=== PATIENT | female | born 1985 | race Caucasian/White ===

== ENCOUNTER 2017-04-09 09:08 | Emergency (ER) | payer BC ==
[~2017-04-09] VITALS: Wt 109.0 kg
[2017-04-09] MEDS ORDERED: ACETAMINOPHEN 325 MG TAB PO ONE (11:00)
[2017-04-09] MEDS ORDERED: FIORICET PO (11:13)
[2017-04-09] MEDS ORDERED: NITR-58 PO (11:13)
--- NOTE | 2017-04-09 11:20 | ERD ---
ER Documentation Chief Complaint Chief Complaint HEADACHE WITH LEFT ARM PAIN X 1 MONTH HPI Patient is a 31-year-old female who presents to the ED with headache and left arm pain. Patient has a history of migraines. She states that her headache is similar to what she has experienced in the past. She states that the pain comes and goes and she usually takes Excedrin at home. Patient states that this headache is not the worst headache of her life. Patient states that the pain came on slowly and waxes and wanes. She states that the pain is localized to her frontal head and radiates all the way to the back of her neck. She states that the pain in her left arm started this morning. She denies chest pain or shortness of breath or difficulty breathing. Denies heart conditions. States that the pain comes from the left side of her neck and all down to her left arm. Denies weakness or syncopal episode. Denies dizziness. Denies nausea or vomiting. Denies fainting episode, seizure, blurry vision, problem with balance or problem with speech. Patient does have photophobia. ROS All systems reviewed and are negative except as per history of present illness. Medications Home Meds Active Scripts Acetamin/Butalbital/Caffeine* (Fioricet*) [id number] Tab, 1 TAB PO Q4H Y for PAIN LEVEL 1-5 for 7 Days, #10 TAB Prov:MIHAI ROBERTS PA-C 04/09/17 Nitrofurantoin Monohyd Macrocr* (Macrobid*) 100 Mg Capsr, 100 MG PO BID for 5 Days, CAP Prov:MIHAI ROBERTS PA-C 04/09/17 Allergies Allergies: Coded Allergies: No Known Allergy (Unverified , 04/09/17) PMhx/Soc Medical and Surgical Hx: pt denies Medical Hx, pt denies Surgical Hx History of Surgery: Yes (Gallbladder) Anesthesia Reaction: No Hx Neurological Disorder: Yes (Migraine) Hx Respiratory Disorders: No Hx Cardiac Disorders: No Hx Psychiatric Problems: No Hx Miscellaneous Medical Probl: No Hx Alcohol Use: No Hx Substance Use: No Hx Tobacco Use: No Smoking Status: Never smoker FmHx Family History: No coronary disease, No diabetes, No other Physical Exam Vitals Vital Signs Date Time Temp Pulse Resp B/P Pulse Ox O2 Delivery O2 Flow Rate FiO2 04/09/17:43 98 04/09/17 09:15 98.1 84 18 139/77 99 Physical Exam GENERAL: Well-developed, well-nourished female. Appears in no acute distress. HEAD: Normocephalic, atraumatic. EYES: Pupils are equally reactive bilaterally. EOMs grossly intact. No conjunctival erythema. ENT: Moist mucous membranes. No uvula deviation. No kissing tonsils. No exudates. NECK: Supple. No lymphadenopathy or thyromegaly. No meningismus. negative kernig. negative brudinski. + spurlin maneuver on the left. LUNG: Clear to auscultation bilaterally. No rhonchi, wheezing, rales or coarse breath sounds. HEART: Regular rate and rhythm. No murmurs, rubs or gallops. Extremities: Equal pulses bilaterally. No peripheral clubbing, cyanosis or edema. No unilateral leg swelling. NEUROLOGIC: Alert and oriented. Moving all four extremities. 5/5 strength in all extremities. Normal speech. Steady gait. Annual nerves II through XII intact. Negative Romberg test. No ataxia. normal muscle strength and tone, normal gait. no pronator drift. SKIN: Normal color. Warm and dry. No rashes or lesions. Capillary refill < 2 seconds Results 24 hrs Laboratory Tests Test 04/09/17 10:52 Bedside Urine pH (LAB) 6.0 Bedside Urine Protein (LAB) Negative Bedside Urine Glucose (UA) Negative Bedside Urine Ketones (LAB) Negative Bedside Urine Blood Trace-lysed Bedside Urine Nitrite (LAB) Negative Bedside Urine Leukocyte Esterase (L 1+ Current Medications Medications (Trade) Dose Ordered Sig/Femi Route PRN Reason Start Time Stop Time Status Last Admin Dose Admin Acetaminophen (Tylenol Tab) 650 mg ONCE ONCE PO 04/09/17 11:00 04/09/17 11:01 DC 04/09/17 10:51 Procedures/MDM ER COURSE: I kept the patient and/or family informed of laboratory and diagnostic imaging results throughout the emergency room course. MEDICAL DECISION MAKING: This is a 31-year-old female who presents with headache x1 month on and off and left arm pain. Vital signs were reviewed. Patient is afebrile. Patient is not hypoxic. Patient is not toxic or ill-appearing. Patient likely has headache with radiculopathy. Patient's cranial nerve exam was within normal limits. Patient's urine showed 1+ leuks, likely cystitis. Patient does not have fever or chills or back pain low suspicion for pyelonephritis. Negative test. Patient was given Tylenol, tolerated well with no adverse reaction. Risks versus benefits of the CT scan were discussed with patient. At this time risks outweight benefits. She does not want a CT scan today. Patient is looking for prescription medication and a note for work. Patient does have follow-up with her primary care provider. EKG was done. EKG performed, read by Dr Osborn 89bpm, normal sinus rhythm, normal axis, no acute ST segment changes, no T wave inversion, no STEMI. low suspicion for intracranial hemorrhage, meningitis, intracranial mass, concussion, temporal arteritis, stroke, elevated intracranial pressure, seizure. Low suspicion for ACS, PE, AAA , dissection, DVT. DISCHARGE: At this time, patient is stable for discharge and outpatient management with no new complaints during the ER course. Patient was sent home with Lauryn, note for work, Macrobid and to follow-up with primary care provider and neurologist for her chronic migraines. Patient will be discharged home with instructions to recheck for new or worsening symptoms such as fever, nausea, weakness, LOC and to follow up with primary care in the next 1-2 days. Patient was advised to return to the ER for any new or worsening symptoms. Plan was discussed and patient and/or family understands and agrees. Home instructions were given. Departure Diagnosis: Primary Impression: Headache Headache type: unspecified Headache chronicity pattern: unspecified pattern Intractability: not intractable Qualified Code: R51 - Nonintractable headache, unspecified chronicity pattern, unspecified headache type Additional Impression: Cystitis Condition: Stable Patient Instructions: Self-Care for Headaches, Cystitis Referrals: COMMUNITY CLINICS YOU HAVE RECEIVED A MEDICAL SCREENING EXAM AND THE RESULTS INDICATE THAT YOU DO NOT HAVE A CONDITION THAT REQUIRES URGENT TREATMENT IN THE EMERGENCY DEPARTMENT. FURTHER EVALUATION AND TREATMENT OF YOUR CONDITION CAN WAIT UNTIL YOU ARE SEEN IN YOUR DOCTORS OFFICE WITHIN THE NEXT 1-2 DAYS. IT IS YOUR RESPONSIBILITY TO MAKE AN APPOINTMENT FOR FOLOW-UP CARE. IF YOU HAVE A PRIMARY DOCTOR --you should call your primary doctor and schedule an appointment IF YOU DO NOT HAVE A PRIMARY DOCTOR YOU CAN CALL OUR PHYSICIAN REFERRAL HOTLINE AT IF YOU CAN NOT AFFORD TO SEE A PHYSICIAN YOU CAN CHOSE FROM THE FOLLOWING [facility] CLINICS [facility] [address] [facility] [address] [facility] [facility] [address] [facility] [address] [facility]. [facility] [address] [facility]. [facility] [address] Additional Instructions: Call your primary care doctor TOMORROW for an appointment during the next 1-2 days.See the doctor sooner or return here if your condition worsens before your appointment time. MIHAI ROBERTS PA-C Apr 09, 2017 11:20
--- NOTE | 2017-04-09 11:20 | ERD ---
ER Documentation Chief Complaint Chief Complaint HEADACHE WITH LEFT ARM PAIN X 1 MONTH HPI Patient is a 31-year-old female who presents to the ED with headache and left arm pain. Patient has a history of migraines. She states that her headache is similar to what she has experienced in the past. She states that the pain comes and goes and she usually takes Excedrin at home. Patient states that this headache is not the worst headache of her life. Patient states that the pain came on slowly and waxes and wanes. She states that the pain is localized to her frontal head and radiates all the way to the back of her neck. She states that the pain in her left arm started this morning. She denies chest pain or shortness of breath or difficulty breathing. Denies heart conditions. States that the pain comes from the left side of her neck and all down to her left arm. Denies weakness or syncopal episode. Denies dizziness. Denies nausea or vomiting. Denies fainting episode, seizure, blurry vision, problem with balance or problem with speech. Patient does have photophobia. ROS All systems reviewed and are negative except as per history of present illness. Medications Home Meds Active Scripts Acetamin/Butalbital/Caffeine* (Fioricet*) [id number] Tab, 1 TAB PO Q4H Y for PAIN LEVEL 1-5 for 7 Days, #10 TAB Prov:MIHAI ROBERTS PA-C 04/09/17 Nitrofurantoin Monohyd Macrocr* (Macrobid*) 100 Mg Capsr, 100 MG PO BID for 5 Days, CAP Prov:MIHAI ROBERTS PA-C 04/09/17 Allergies Allergies: Coded Allergies: No Known Allergy (Unverified , 04/09/17) PMhx/Soc Medical and Surgical Hx: pt denies Medical Hx, pt denies Surgical Hx History of Surgery: Yes (Gallbladder) Anesthesia Reaction: No Hx Neurological Disorder: Yes (Migraine) Hx Respiratory Disorders: No Hx Cardiac Disorders: No Hx Psychiatric Problems: No Hx Miscellaneous Medical Probl: No Hx Alcohol Use: No Hx Substance Use: No Hx Tobacco Use: No Smoking Status: Never smoker FmHx Family History: No coronary disease, No diabetes, No other Physical Exam Vitals Vital Signs Date Time Temp Pulse Resp B/P Pulse Ox O2 Delivery O2 Flow Rate FiO2 04/09/17:43 98 04/09/17 09:15 98.1 84 18 139/77 99 Physical Exam GENERAL: Well-developed, well-nourished female. Appears in no acute distress. HEAD: Normocephalic, atraumatic. EYES: Pupils are equally reactive bilaterally. EOMs grossly intact. No conjunctival erythema. ENT: Moist mucous membranes. No uvula deviation. No kissing tonsils. No exudates. NECK: Supple. No lymphadenopathy or thyromegaly. No meningismus. negative kernig. negative brudinski. + spurlin maneuver on the left. LUNG: Clear to auscultation bilaterally. No rhonchi, wheezing, rales or coarse breath sounds. HEART: Regular rate and rhythm. No murmurs, rubs or gallops. Extremities: Equal pulses bilaterally. No peripheral clubbing, cyanosis or edema. No unilateral leg swelling. NEUROLOGIC: Alert and oriented. Moving all four extremities. 5/5 strength in all extremities. Normal speech. Steady gait. Annual nerves II through XII intact. Negative Romberg test. No ataxia. normal muscle strength and tone, normal gait. no pronator drift. SKIN: Normal color. Warm and dry. No rashes or lesions. Capillary refill < 2 seconds Results 24 hrs Laboratory Tests Test 04/09/17 10:52 Bedside Urine pH (LAB) 6.0 Bedside Urine Protein (LAB) Negative Bedside Urine Glucose (UA) Negative Bedside Urine Ketones (LAB) Negative Bedside Urine Blood Trace-lysed Bedside Urine Nitrite (LAB) Negative Bedside Urine Leukocyte Esterase (L 1+ Current Medications Medications (Trade) Dose Ordered Sig/Femi Route PRN Reason Start Time Stop Time Status Last Admin Dose Admin Acetaminophen (Tylenol Tab) 650 mg ONCE ONCE PO 04/09/17 11:00 04/09/17 11:01 DC 04/09/17 10:51 Procedures/MDM ER COURSE: I kept the patient and/or family informed of laboratory and diagnostic imaging results throughout the emergency room course. MEDICAL DECISION MAKING: This is a 31-year-old female who presents with headache x1 month on and off and left arm pain. Vital signs were reviewed. Patient is afebrile. Patient is not hypoxic. Patient is not toxic or ill-appearing. Patient likely has headache with radiculopathy. Patient's cranial nerve exam was within normal limits. Patient's urine showed 1+ leuks, likely cystitis. Patient does not have fever or chills or back pain low suspicion for pyelonephritis. Negative test. Patient was given Tylenol, tolerated well with no adverse reaction. Risks versus benefits of the CT scan were discussed with patient. At this time risks outweight benefits. She does not want a CT scan today. Patient is looking for prescription medication and a note for work. Patient does have follow-up with her primary care provider. EKG was done. EKG performed, read by Dr Osborn 89bpm, normal sinus rhythm, normal axis, no acute ST segment changes, no T wave inversion, no STEMI. low suspicion for intracranial hemorrhage, meningitis, intracranial mass, concussion, temporal arteritis, stroke, elevated intracranial pressure, seizure. Low suspicion for ACS, PE, AAA , dissection, DVT. DISCHARGE: At this time, patient is stable for discharge and outpatient management with no new complaints during the ER course. Patient was sent home with Lauryn, note for work, Macrobid and to follow-up with primary care provider and neurologist for her chronic migraines. Patient will be discharged home with instructions to recheck for new or worsening symptoms such as fever, nausea, weakness, LOC and to follow up with primary care in the next 1-2 days. Patient was advised to return to the ER for any new or worsening symptoms. Plan was discussed and patient and/or family understands and agrees. Home instructions were given. Departure Diagnosis: Primary Impression: Headache Headache type: unspecified Headache chronicity pattern: unspecified pattern Intractability: not intractable Qualified Code: R51 - Nonintractable headache, unspecified chronicity pattern, unspecified headache type Additional Impression: Cystitis Condition: Stable Patient Instructions: Self-Care for Headaches, Cystitis Referrals: COMMUNITY CLINICS YOU HAVE RECEIVED A MEDICAL SCREENING EXAM AND THE RESULTS INDICATE THAT YOU DO NOT HAVE A CONDITION THAT REQUIRES URGENT TREATMENT IN THE EMERGENCY DEPARTMENT. FURTHER EVALUATION AND TREATMENT OF YOUR CONDITION CAN WAIT UNTIL YOU ARE SEEN IN YOUR DOCTORS OFFICE WITHIN THE NEXT 1-2 DAYS. IT IS YOUR RESPONSIBILITY TO MAKE AN APPOINTMENT FOR FOLOW-UP CARE. IF YOU HAVE A PRIMARY DOCTOR --you should call your primary doctor and schedule an appointment IF YOU DO NOT HAVE A PRIMARY DOCTOR YOU CAN CALL OUR PHYSICIAN REFERRAL HOTLINE AT IF YOU CAN NOT AFFORD TO SEE A PHYSICIAN YOU CAN CHOSE FROM THE FOLLOWING [facility] CLINICS [facility] [address] [facility] [address] [facility]. [facility] [address] [facility] [address] [facility]. [facility] [address] [facility]. [facility] [address] Additional Instructions: Call your primary care doctor TOMORROW for an appointment during the next 1-2 days.See the doctor sooner or return here if your condition worsens before your appointment time. MIHAI ROBERTS PA-C Apr 09, 2017 11:20
--- NOTE | 2017-04-09 11:20 | ERD ---
ER Documentation Chief Complaint Chief Complaint HEADACHE WITH LEFT ARM PAIN X 1 MONTH HPI Patient is a 31-year-old female who presents to the ED with headache and left arm pain. Patient has a history of migraines. She states that her headache is similar to what she has experienced in the past. She states that the pain comes and goes and she usually takes Excedrin at home. Patient states that this headache is not the worst headache of her life. Patient states that the pain came on slowly and waxes and wanes. She states that the pain is localized to her frontal head and radiates all the way to the back of her neck. She states that the pain in her left arm started this morning. She denies chest pain or shortness of breath or difficulty breathing. Denies heart conditions. States that the pain comes from the left side of her neck and all down to her left arm. Denies weakness or syncopal episode. Denies dizziness. Denies nausea or vomiting. Denies fainting episode, seizure, blurry vision, problem with balance or problem with speech. Patient does have photophobia. ROS All systems reviewed and are negative except as per history of present illness. Medications Home Meds Active Scripts Acetamin/Butalbital/Caffeine* (Fioricet*) [id number] Tab, 1 TAB PO Q4H Y for PAIN LEVEL 1-5 for 7 Days, #10 TAB Prov:MIHAI ROBERTS PA-C 04/09/17 Nitrofurantoin Monohyd Macrocr* (Macrobid*) 100 Mg Capsr, 100 MG PO BID for 5 Days, CAP Prov:MIHAI ROBERTS PA-C 04/09/17 Allergies Allergies: Coded Allergies: No Known Allergy (Unverified , 04/09/17) PMhx/Soc Medical and Surgical Hx: pt denies Medical Hx, pt denies Surgical Hx History of Surgery: Yes (Gallbladder) Anesthesia Reaction: No Hx Neurological Disorder: Yes (Migraine) Hx Respiratory Disorders: No Hx Cardiac Disorders: No Hx Psychiatric Problems: No Hx Miscellaneous Medical Probl: No Hx Alcohol Use: No Hx Substance Use: No Hx Tobacco Use: No Smoking Status: Never smoker FmHx Family History: No coronary disease, No diabetes, No other Physical Exam Vitals Vital Signs Date Time Temp Pulse Resp B/P Pulse Ox O2 Delivery O2 Flow Rate FiO2 04/09/17:43 98 04/09/17 09:15 98.1 84 18 139/77 99 Physical Exam GENERAL: Well-developed, well-nourished female. Appears in no acute distress. HEAD: Normocephalic, atraumatic. EYES: Pupils are equally reactive bilaterally. EOMs grossly intact. No conjunctival erythema. ENT: Moist mucous membranes. No uvula deviation. No kissing tonsils. No exudates. NECK: Supple. No lymphadenopathy or thyromegaly. No meningismus. negative kernig. negative brudinski. + spurlin maneuver on the left. LUNG: Clear to auscultation bilaterally. No rhonchi, wheezing, rales or coarse breath sounds. HEART: Regular rate and rhythm. No murmurs, rubs or gallops. Extremities: Equal pulses bilaterally. No peripheral clubbing, cyanosis or edema. No unilateral leg swelling. NEUROLOGIC: Alert and oriented. Moving all four extremities. 5/5 strength in all extremities. Normal speech. Steady gait. Annual nerves II through XII intact. Negative Romberg test. No ataxia. normal muscle strength and tone, normal gait. no pronator drift. SKIN: Normal color. Warm and dry. No rashes or lesions. Capillary refill < 2 seconds Results 24 hrs Laboratory Tests Test 04/09/17 10:52 Bedside Urine pH (LAB) 6.0 Bedside Urine Protein (LAB) Negative Bedside Urine Glucose (UA) Negative Bedside Urine Ketones (LAB) Negative Bedside Urine Blood Trace-lysed Bedside Urine Nitrite (LAB) Negative Bedside Urine Leukocyte Esterase (L 1+ Current Medications Medications (Trade) Dose Ordered Sig/Femi Route PRN Reason Start Time Stop Time Status Last Admin Dose Admin Acetaminophen (Tylenol Tab) 650 mg ONCE ONCE PO 04/09/17 11:00 04/09/17 11:01 DC 04/09/17 10:51 Procedures/MDM ER COURSE: I kept the patient and/or family informed of laboratory and diagnostic imaging results throughout the emergency room course. MEDICAL DECISION MAKING: This is a 31-year-old female who presents with headache x1 month on and off and left arm pain. Vital signs were reviewed. Patient is afebrile. Patient is not hypoxic. Patient is not toxic or ill-appearing. Patient likely has headache with radiculopathy. Patient's cranial nerve exam was within normal limits. Patient's urine showed 1+ leuks, likely cystitis. Patient does not have fever or chills or back pain low suspicion for pyelonephritis. Negative test. Patient was given Tylenol, tolerated well with no adverse reaction. Risks versus benefits of the CT scan were discussed with patient. At this time risks outweight benefits. She does not want a CT scan today. Patient is looking for prescription medication and a note for work. Patient does have follow-up with her primary care provider. EKG was done. EKG performed, read by Dr Osborn 89bpm, normal sinus rhythm, normal axis, no acute ST segment changes, no T wave inversion, no STEMI. low suspicion for intracranial hemorrhage, meningitis, intracranial mass, concussion, temporal arteritis, stroke, elevated intracranial pressure, seizure. Low suspicion for ACS, PE, AAA , dissection, DVT. DISCHARGE: At this time, patient is stable for discharge and outpatient management with no new complaints during the ER course. Patient was sent home with Lauryn, note for work, Macrobid and to follow-up with primary care provider and neurologist for her chronic migraines. Patient will be discharged home with instructions to recheck for new or worsening symptoms such as fever, nausea, weakness, LOC and to follow up with primary care in the next 1-2 days. Patient was advised to return to the ER for any new or worsening symptoms. Plan was discussed and patient and/or family understands and agrees. Home instructions were given. Departure Diagnosis: Primary Impression: Headache Headache type: unspecified Headache chronicity pattern: unspecified pattern Intractability: not intractable Qualified Code: R51 - Nonintractable headache, unspecified chronicity pattern, unspecified headache type Additional Impression: Cystitis Condition: Stable Patient Instructions: Self-Care for Headaches, Cystitis Referrals: COMMUNITY CLINICS YOU HAVE RECEIVED A MEDICAL SCREENING EXAM AND THE RESULTS INDICATE THAT YOU DO NOT HAVE A CONDITION THAT REQUIRES URGENT TREATMENT IN THE EMERGENCY DEPARTMENT. FURTHER EVALUATION AND TREATMENT OF YOUR CONDITION CAN WAIT UNTIL YOU ARE SEEN IN YOUR DOCTORS OFFICE WITHIN THE NEXT 1-2 DAYS. IT IS YOUR RESPONSIBILITY TO MAKE AN APPOINTMENT FOR FOLOW-UP CARE. IF YOU HAVE A PRIMARY DOCTOR --you should call your primary doctor and schedule an appointment IF YOU DO NOT HAVE A PRIMARY DOCTOR YOU CAN CALL OUR PHYSICIAN REFERRAL HOTLINE AT IF YOU CAN NOT AFFORD TO SEE A PHYSICIAN YOU CAN CHOSE FROM THE FOLLOWING [facility] CL[facility]ICS [facility] [address] [facility] [address] [facility]. [facility] [address] [facility] [address] [facility]. [facility] [address] [facility]. [facility] [address] Additional Instructions: Call your primary care doctor TOMORROW for an appointment during the next 1-2 days.See the doctor sooner or return here if your condition worsens before your appointment time. MIHAI ROBERTS PA-C Apr 09, 2017 11:20
== END 2017-04-09 11:43 | disposition home or self-care (01) ==
LOC: FTE 09:08
DX: R51 Headache (principal); N30.90 Cystitis, unspecified without hematuria; M79.602 Pain in left arm
CPT/HCPCS: 81003; 93005

== ENCOUNTER 2018-02-13 23:02 | Emergency (ER) | END 2018-02-14 04:20 | disposition home or self-care (01) ==

== ENCOUNTER 2018-04-18 13:49 | Emergency (ER) | END 2018-04-18 17:36 | disposition home or self-care (01) ==